=== PATIENT | male | born 1945 | race Caucasian/White ===

== ENCOUNTER 2016-12-30 10:42 | Outpatient (CLI) | payer MEDICARE, OTHER ==
[2016-12-30 13:21] LABS: Bilirubin Negative (Negative); Blood, Urine Negative (Negative); Clarity Clear (Clear); Glucose, Urine (Dipstick) Negative (Negative); Leukocyte Negative (Negative); Nitrite Negative (Negative); Protein, Urine (Dipstick) Negative (Neg-Trace); Urobilinogen 0.2 mg/dL (0.2-1.0)
[2016-12-30 13:34] LABS: #Basophils 0.1 thou/uL (0.0-0.2); #Eosinphils 0.1 thou/uL (0.0-0.7); #Lymphocytes 2.1 thou/uL (1.20-3.40); #Monocytes 0.5 thou/uL (0.11-0.59); #Neutrophils 2.8 thou/uL (1.40-6.50); %Basophils 0.9 % (0.0-1.0); %Eosinophils 2.4 % (0.0-10.0); %Lymphocytes 37.7 % (21.0-51.0); %Monocytes 8.8 % (0.0-10.0); %Neutrophils 50.2 % (42.0-75.0); Hemoglobin 14.5 g/dL (14.0-18.0); Mean Corpuscular HGB CONC 32.8 g/dL (32.0-36.0); Mean Corpuscular Volume 88.5 fl (80.0-94.0); Mean Platelet Volume 6.3 fL (7.4-10.4); Platelet Count 268 thou/uL (130-400); RBC Distribution Width 12.2 % (11.5-14.5); Red Blood Cell (RBC) Count 4.99 mill/uL (4.70-6.10); White Blood Cell (WBC) Count 5.7 thou/uL (4.8-10.8)
[2016-12-30 13:50] LABS: ALT (SGPT) 29 U/L (8-55); AST (SGOT) 23 U/L (5-34); Albumin 4.2 g/dL (3.4-4.8); Alkaline Phosphatase 51 U/L (40-150); Anion Gap 19 mmol/L (10-20); BUN (Urea Nitrogen) 22 mg/dL (8.4-25.7); Bilirubin, Direct 0.2 mg/dL (0.1-0.3); Bilirubin, Total 0.5 mg/dL (0.2-1.2); Calc. Creatinine Clearance 0 mL/min (70-130); Calcium 9.6 mg/dL (7.8-10.44); Carbon Dioxide 21 mmol/L (23-31); Chloride 104 mmol/L (98-107); Cholesterol 241 mg/dl (< 200 Desired); Estimated GFR-MDRD Greater than 90; Glucose 85 mg/dL (83-110); HDL Cholesterol 61 mg/dL (>60 Neg Risk); LDL Cholesterol, Calculated 161 mg/dL; Potassium 4.9 mmol/L (3.5-5.1); Protein, Total 6.6 g/dL (5.8-8.1); Sodium 139 mmol/L (136-145); Triglycerides 94 mg/dL (Less than 150)
[2016-12-30 13:52] LABS: PSA-Asymptomatic (SCREENING) 2.34 ng/mL (0-4.0)
[2016-12-30 14:02] LABS: Hemoglobin A1c 5.1 % (4.0-6.0)
[2016-12-30 15:09] LABS: CRP (Inflammatory) Less than 0.50 mg/dL (= or < 0.5)
== END 2016-12-30 10:43 | disposition home or self-care (01) ==
LOC: NAVSJIPCSP 10:42
PROVIDERS: ATTEND Internal Medicine
DX: Z12.5 Encounter for screening for malignant neoplasm of prostate (principal); Z79.899 Other long term (current) drug therapy
CPT/HCPCS: 36415; 80048; 80061; 80076; 81003; 83036; 84443; 85025; 86140; G0103

== ENCOUNTER 2017-08-11 11:46 | Outpatient (CLI) | payer MEDICARE, OTHER ==
--- NOTE | 2017-08-11 14:02 | RAD ---
THREE VIEWS LEFT SHOULDER: DATE: 08/11/17. HISTORY: Left shoulder pain. FINDINGS: There is acromioclavicular joint osteoarthritis. The coracoclavicular and acromioclavicular distance s are within normal limits. No fracture or dislocation is seen involving the left shoulder. IMPRESSION: 1. Left acromioclavicular joint osteoarthritis. 2. No acute osseous abnormality of the left shoulder. POS: [facility]
== END 2017-08-11 11:47 | disposition home or self-care (01) ==
LOC: NAV RAD 11:46
PROVIDERS: ATTEND Internal Medicine
DX: S49.92XA Unspecified injury of left shoulder and upper arm, initial encounter (principal); M19.012 Primary osteoarthritis, left shoulder

== ENCOUNTER 2018-05-11 09:02 | Emergency (ER) | payer MEDICARE, OTHER ==
[2018-05-11 09:54] LABS: #Basophils 0.1 thou/uL (0.0-0.2); #Eosinphils 0.2 thou/uL (0.0-0.7); #Lymphocytes 2.5 thou/uL (1.20-3.40); #Monocytes 0.7 thou/uL (0.11-0.59); #Neutrophils 3.1 thou/uL (1.40-6.50); %Basophils 1.4 % (0.0-1.0); %Eosinophils 2.7 % (0.0-10.0); %Lymphocytes 37.7 % (21.0-51.0); %Monocytes 10.9 % (0.0-10.0); %Neutrophils 47.4 % (42.0-75.0); Hemoglobin 14.7 g/dL (14.0-18.0); Mean Corpuscular HGB CONC 32.7 g/dL (32.0-36.0); Mean Corpuscular Volume 88.7 fL (78.0-98.0); Mean Platelet Volume 6.7 fL (7.4-10.4); Platelet Count 298 thou/uL (130-400); Red Blood Cell (RBC) Count 5.07 mill/uL (4.70-6.10); White Blood Cell (WBC) Count 6.5 thou/uL (4.8-10.8)
--- NOTE | 2018-05-11 10:11 | RAD ---
CHEST TWO VIEWS: Indication: Intermittent chest pain with cough and congestion. Comparison: None. FINDINGS: No acute airspace opacity, pleural effusion, or pneumothorax is evident. Cardiomediastinal silhouette is within normal limits. No acute osseous abnormality is evident. IMPRESSION: No acute cardiopulmonary abnormality. POS: [facility]
[2018-05-11 10:13] LABS: ALT (SGPT) 32 U/L (8-55); AST (SGOT) 30 U/L (5-34); Albumin 4.3 g/dL (3.4-4.8); Alkaline Phosphatase 48 U/L (40-150); Anion Gap 14 mmol/L (10-20); BUN (Urea Nitrogen) 19 mg/dL (8.4-25.7); Bilirubin, Total 0.5 mg/dL (0.2-1.2); Calc. Creatinine Clearance 0 mL/min (70-130); Calcium 10.1 mg/dL (7.8-10.44); Carbon Dioxide 24 mmol/L (23-31); Chloride 102 mmol/L (98-107); Estimated GFR-MDRD Greater than 90; Globulin 2.5 g/dL (2.4-3.5); Glucose 90 mg/dL (83-110); Lipase 47 U/L (8-78); Potassium 4.4 mmol/L (3.5-5.1); Protein, Total 6.8 g/dL (5.8-8.1); Sodium 136 mmol/L (136-145)
[2018-05-11] MEDS ORDERED: Aspirin Chewable 81 MG TAB ONE (10:24)
== END 2018-05-11 11:16 | disposition short-term general hospital (02) ==
LOC: NAV ERS 09:02
DX: R07.89 Other chest pain (principal); K21.9 Gastro-esophageal reflux disease without esophagitis; E78.5 Hyperlipidemia, unspecified; I10 Essential (primary) hypertension; Z87.891 Personal history of nicotine dependence; Z79.899 Other long term (current) drug therapy; Z79.82 Long term (current) use of aspirin
CPT/HCPCS: 71046; 80053; 83690; 83880; 84484; 85025; 93005; 94760

== ENCOUNTER 2018-05-21 09:56 | Outpatient (CLI) | payer MEDICARE, OTHER ==
--- NOTE | 2018-05-21 11:04 | CT ---
CT BRAIN WITHOUT CONTRAST: HISTORY: Fall. Loss of consciousness. COMPARISON: None. FINDINGS: There is [id number] bifrontal and temporal atrophy. No acute hemorrhage or infarct. No midline shift or mass effect. The paranasal sinuses and mastoids are clear. The calvarium is intact. The globes are intact. IMPRESSION: 1. No acute post traumatic intracranial sequelae. 2. Symmetric bilateral frontotemporal atrophy, which can be seen with frontotemporal dementia. POS: [facility]
--- NOTE | 2018-05-21 11:46 | CT ---
CT THORACIC SPINE WITHOUT CONTRAST: HISTORY: Pain. T3-T6 pain. COMPARISON: None. FINDINGS: Please see the CT chest for intrathoracic findings. There is no acute fracture or malalignment of the thoracic spine. No listhesis. No pars interarticu adriana defect. The visualized ribs, posteriorly, are intact. Mild hypertrophic facet changes bilaterally at T7-T8 and T8-T9, without significant neural foraminal or spinal canal narrowing. No suspicious osteolytic or osteoblastic lesion. Mild hypertrophic facet changes on the right, at T3 -T4. IMPRESSION: 1. No acute fracture or malalignment of the thoracic spine. 2. No suspicious osteolytic or osteoblastic lesion. POS: [facility]
--- NOTE | 2018-05-21 12:05 | CT ---
CTA OF THE CHEST WITH CONTRAST: COMPARISON: None. HISTORY: Chest pain for 2 months. TECHNIQUE: Multiple contiguous axial images were obtained in a CTA of the chest with contrast per pulmonary embo lism protocol. Three-D oblique MIP reformats and direct coronal reformats were performed. FINDINGS: The pulmonary arteries are well opacified without filling defects to suggest pulmonary emboli. The h eart is normal in size without focal cardiac abnormality. No hilar or mediastinal lymphadenopathy ar e appreciated. Atelectasis is seen in the lung bases. No focal infiltrates are seen. A 4 mm peripheral nodule is s een on image 61 of 109 in the right middle lobe. No other pulmonary nodules are seen. No pneumothor ax or pleural effusion are seen. The visualized subdiaphragmatic structures are unremarkable. Degenerative changes are seen in the sp ine. The chest wall soft tissues are unremarkable. IMPRESSION: No evidence of pulmonary thromboembolism. POS: [facility]
== END 2018-05-21 09:57 | disposition home or self-care (01) ==
LOC: NAV CT 09:56
PROVIDERS: ATTEND Internal Medicine
DX: S09.90XA Unspecified injury of head, initial encounter (principal); R07.2 Precordial pain; G31.9 Degenerative disease of nervous system, unspecified
CPT/HCPCS: 70450; 71275; 72128

== ENCOUNTER 2021-10-24 10:19 | Outpatient (CLI) | payer MEDICARE, OTHER | END 2021-10-24 10:20 | disposition home or self-care (01) | LOC: NAV RAD 10:19 | PROVIDERS: ATTEND Family Medicine | DX: R05.1 Acute cough (principal) | CPT/HCPCS: 71046 ==